=== PATIENT | male | born 1995 | race Caucasian/White ===

== ENCOUNTER 2017-07-09 14:28 | Inpatient (IN) | payer BC, OTHER ==
[~2017-07-09] VITALS: Ht 180.3 cm; Wt 73.6 kg
[2017-07-09 14:54] VITALS: BP 177/70; PULSE 109; RESP 18; TEMP 97.6; O2SAT 99
[2017-07-09 15:28] LABS: AUTOMATED NEUTROPHIL # 18.2 TH/MM3 (1.8-7.7); BASOPHIL # 0.1 TH/MM3 (0-0.2); BASOPHIL % 0.3 % (0.0-2.0); EOSINOPHIL # 0.1 TH/MM3 (0-0.4); EOSINOPHIL % 0.3 % (0.0-4.0); HEMATOCRIT 42.4 % (39.0-51.0); HEMOGLOBIN 14.8 GM/DL (13.0-17.0); LYMPH % 7.2 % (9.0-44.0); LYMPHOCYTE # 1.6 TH/MM3 (1.0-4.8); MEAN CELL VOLUME 82.5 FL (80.0-100.0); MEAN CORPUSCULAR HEMOGLOBIN 28.8 PG (27.0-34.0); MEAN CORPUSCULAR HGB CONC 34.9 % (32.0-36.0); MEAN PLATELET VOLUME 8.4 FL (7.0-11.0); MONO % 7.6 % (0.0-8.0); MONOCYTE # 1.6 TH/MM3 (0-0.9); NEUT % 84.6 % (16.0-70.0); PLATELET COUNT 302 TH/MM3 (150-450); RED BLOOD COUNT 5.14 MIL/MM3 (4.50-5.90); RED CELL DISTRIBUTION WIDTH 13.4 % (11.6-17.2); WHITE BLOOD COUNT 21.5 TH/MM3 (4.0-11.0)
[2017-07-09 15:57] LABS: ALBUMIN 4.8 GM/DL (3.4-5.0); ALT (GPT) 28 U/L (12-78); AST (GOT) 32 U/L (15-37); BICARBONATE 24.7 MEQ/L (21.0-32.0); BLOOD UREA NITROGEN 15 MG/DL (7-18); CHLORIDE 104 MEQ/L (98-107); CREATININE 1.25 MG/DL (0.60-1.30); GLOMERULAR FILTRATION RATE 71 ML/MIN (>89); GLUCOSE,RANDOM 90 MG/DL (74-106); SODIUM (NA) 139 MEQ/L (136-145)
[2017-07-09 15:59] LABS: ALKALINE PHOSPHATASE 79 U/L (45-117); TOTAL BILIRUBIN ADULT 1.3 MG/DL (0.2-1.0); TOTAL PROTEIN 8.2 GM/DL (6.4-8.2)
[2017-07-09 16:09] LABS: ACETAMINOPHEN LESS THAN 2.0 MCG/ML (10.0-30.0)
--- NOTE | 2017-07-09 17:09 | PD ---
HPI Chief Complaint: Psychiatric Symptoms Time Seen by Provider: 16:04 Travel History International Travel<30 days: No Contact w/Intl Traveler<30days: No Traveled to known affect area: No History of Present Illness HPI 22-year-old male that presents to the ED for evaluation of Butler act. Patient was Butler acted by police after properly he was running on the golf course naked. Patient states that he has a history of bipolar disorder and has having pulses in the past, like this. Per patient he only uses marijuana no other drugs. He states that he took off his clothes because he was raining and he was called. He denies any chest pain or shortness of breath. No head injury. No fevers chills or sweats. Per patient about a week ago he had some cold-like symptoms but that has improved. Per patient he is compliant with his lithium. He denies any fevers chills or sweats. Per patient he went to see his psychiatrist last week. Per patient his been battling with homelessness as well as psychiatric illness. He does appear to have some mild myles noted. Denies any suicidal or homicidal ideation at this time. No hallucinations. Unclear length of symptoms which appear to have worsened today. [facility] Past Medical History Medical History: Denies Significant Hx ?: Not Past Surgical History Surgical History: No Previous Surgery Social History Alcohol Use: No Tobacco Use: No Substance Use: No Allergies-Medications (Allergen,Severity, Reaction): Coded Allergies: No Known Allergies (Verified Allergy, Unknown, 07/09/17) Review of Systems Except as stated in HPI: all other systems reviewed are Neg Physical Exam Narrative GENERAL: SKIN: Warm and dry. HEAD: Atraumatic. Normocephalic. EYES: Pupils equal and round. No scleral icterus. No injection or drainage. ENT: No nasal bleeding or discharge. Mucous membranes pink and moist. Tongue is midline. No uvula deviation. NECK: Trachea midline. No JVD. CARDIOVASCULAR: Regular rate and rhythm. No murmurs, S3, S4. RESPIRATORY: No accessory muscle use. Clear to auscultation. Breath sounds equal bilaterally. GASTROINTESTINAL: Abdomen soft, non-tender, nondistended. Hepatic and splenic margins not palpable. MUSCULOSKELETAL: Extremities without clubbing, cyanosis, or edema. No obvious deformities. Full range of motion of the upper and lower extremities bilaterally. 2+ pulses bilaterally. NEUROLOGICAL: Awake and alert. No obvious cranial nerve deficits. Motor grossly within normal limits. Five out of 5 muscle strength in the arms and legs. Normal speech. PSYCHIATRIC: Manic mood and affect; insight and judgment normal. Data Data Last Documented VS Vital Signs Date Time Temp Pulse Resp B/P (MAP) Pulse Ox O2 Delivery O2 Flow Rate FiO2 07/09/17 14:54 97.6 109 18 177/70 (105) 99 Orders Orders Complete Blood Count With Diff (07/09/17 14:42) Comprehensive Metabolic Panel (07/09/17 14:42) Psych Screen (07/09/17 14:42) Drug Screen, Random Urine (07/09/17 14:42) Alcohol (Ethanol) (07/09/17 14:42) Salicylates (Aspirin) (07/09/17 14:42) Tylenol (Acetaminophen) (07/09/17 14:42) Eldora (Li) (07/09/17 16:20) Labs Laboratory Tests Test 07/09/17 15:04 07/09/17 15:35 White Blood Count 21.5 TH/MM3 Red Blood Count 5.14 MIL/MM3 Hemoglobin 14.8 GM/DL Hematocrit 42.4 % Mean Corpuscular Volume 82.5 FL Mean Corpuscular Hemoglobin 28.8 PG Mean Corpuscular Hemoglobin Concent 34.9 % Red Cell Distribution Width 13.4 % Platelet Count 302 TH/MM3 Mean Platelet Volume 8.4 FL Neutrophils (%) (Auto) 84.6 % Lymphocytes (%) (Auto) 7.2 % Monocytes (%) (Auto) 7.6 % Eosinophils (%) (Auto) 0.3 % Basophils (%) (Auto) 0.3 % Neutrophils # (Auto) 18.2 TH/MM3 Lymphocytes # (Auto) 1.6 TH/MM3 Monocytes # (Auto) 1.6 TH/MM3 Eosinophils # (Auto) 0.1 TH/MM3 Basophils # (Auto) 0.1 TH/MM3 CBC Comment DIFF FINAL Differential Comment Blood Urea Nitrogen 15 MG/DL Creatinine 1.25 MG/DL Random Glucose 90 MG/DL Total Protein 8.2 GM/DL Albumin 4.8 GM/DL Calcium Level 9.0 MG/DL Alkaline Phosphatase 79 U/L Aspartate Amino Transf (AST/SGOT) 32 U/L Alanine Aminotransferase (ALT/SGPT) 28 U/L Total Bilirubin 1.3 MG/DL Sodium Level 139 MEQ/L Potassium Level 4.0 MEQ/L Chloride Level 104 MEQ/L Carbon Dioxide Level 24.7 MEQ/L Anion Gap 10 MEQ/L Estimat Glomerular Filtration Rate 71 ML/MIN Salicylates Level LESS THAN 1.7 MG/DL Urine Opiates Screen NEG Acetaminophen Level LESS THAN 2.0 MCG/ML Urine Barbiturates Screen NEG Urine Amphetamines Screen NEG Urine Benzodiazepines Screen NEG Urine Cocaine Screen NEG Urine Cannabinoids Screen POS Ethyl Alcohol Level LESS THAN 3 MG/DL Eldora Level 0.9 MEQ/L MDM Medical Decision Making Medical Screen Exam Complete: Yes Emergency Medical Condition: Yes Medical Record Reviewed: Yes Interpretation(s) CBC & BMP Diagram 07/09/17 15:04 Total Protein 8.2, Albumin 4.8, Calcium Level 9.0, Alkaline Phosphatase 79, Aspartate Amino Transf (AST/SGOT) 32, Alanine Aminotransferase (ALT/SGPT) 28, Total Bilirubin 1.3 H tox positive for marijuana Differential Diagnosis Depression versus suicidal ideation versus anxiety versus adjustment disorder versus mood disorder versus bipolar disorder versus schizophrenia versus paranoid disorder versus psychosis versus substance abuse versus alcohol abuse versus alcohol induced psychosis versus homicidality addition versus cutting versus personality disorder Narrative Course 22-year-old male that presents to the ED for evaluation of psych. Patient was properly examined and was found to have signs and symptoms consistent with appears to be psychiatric illness. Labs were ordered. Labs showed leukocytosis and marijuana. My examination patient has no signs of sepsis or active infection. More apparently no sign of encephalopathy at this time. Patient does have a significant history of bipolar disorder and states that he' s had episodes like this in the past. Case was discussed in my attending Dr. Gibson who agrees the patient can be medically clear. Likely secondary to psychosis/myles. Patient was medically cleared. Okay to be seen by psych. Mental health screening was discussed with the patient. I spoke with the patient's psychiatrist who is in [place] as he apparently tried to contact us to let us know that the patient is to be admitted as patient has a history of psychosis and would like us to keep him as he is concerned that the patient will be discharged too early for him to be stable. Diagnosis Primary Impression: Bipolar disorder Qualified Codes: F31.12 - Bipolar disorder, current episode manic without psychotic features, moderate Oscar Abbasi Jul 09, 2017 17:09
[2017-07-09 19:22] VITALS: BP 143/101; PULSE 94; RESP 18; TEMP 99.9; O2SAT 98
[2017-07-09] MEDS ORDERED: MAGNESIUM HYDROXIDE SUSP 30 ML CUP PO PRN (20:45)
[2017-07-09] MEDS ORDERED: LORazepam 0.5 MG TAB PO PRN (20:45)
[2017-07-09] MEDS ORDERED: LORazepam 2 MG/ML VIAL IM PRN ×2 (20:45)
[2017-07-09] MEDS ORDERED: ALUMINUM/MAGNESIUM/SIMETH 30 ML CUP PO PRN (20:45)
[2017-07-09] MEDS: NICOTINE 21 MG/24 HR PATCH T-DERMAL SCH (20:56)
[2017-07-09] MEDS: REMOVE OLD PATCH T-DERMAL SCH (20:56)
[2017-07-09] MEDS: LITHIUM CARBONATE 300 MG CAP PO SCH (20:57)
[2017-07-09] MEDS: LORazepam 1 MG TAB PO PRN (20:57)
[2017-07-09] MEDS ORDERED: ARIPiprazole 5 MG TAB PO SCH (21:00)
[2017-07-09] MEDS ORDERED: LITH600C PO (21:17)
[2017-07-09 21:50] VITALS: BP 131/79; PULSE 96; RESP 18; TEMP 97.9; O2SAT 99
[2017-07-10 05:28] LABS: BICARBONATE 26.1 MEQ/L (21.0-32.0); BLOOD UREA NITROGEN 14 MG/DL (7-18); CALCIUM 8.4 MG/DL (8.5-10.1); CHLORIDE 102 MEQ/L (98-107); GLOMERULAR FILTRATION RATE 62 ML/MIN (>89); GLUCOSE,RANDOM 94 MG/DL (74-106); SODIUM (NA) 138 MEQ/L (136-145)
[2017-07-10 05:30] LABS: CHOLESTEROL 80 MG/DL (120-200); TRIGLYCERIDES 55 MG/DL (42-150)
[2017-07-10 05:32] LABS: CHOLESTEROL/ HDL RATIO 1.97 RATIO; HDL CHOLESTEROL 40.5 MG/DL (40.0-60.0); LDL CHOLESTEROL 29 MG/DL (0-99)
[2017-07-10 06:07] VITALS: BP 128/74; PULSE 100; RESP 18; TEMP 99.2; O2SAT 99
[2017-07-10] MEDS: NICOTINE 21 MG/24 HR PATCH T-DERMAL SCH (09:00)
[2017-07-10] MEDS: REMOVE OLD PATCH T-DERMAL SCH ×2 (09:00→20:51)
[2017-07-10] MEDS: LITHIUM CARBONATE 300 MG CAP PO SCH ×2 (09:00→20:51)
[2017-07-10 10:56] LABS: HEMOGLOBIN A1C 5.1 % (4.3-6.0)
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
--- NOTE | 2017-07-10 15:58 | PD.CONS ---
HPI Service [facility] Consult Requested By Psychiatry service Reason for Consult Elevated creatinine Primary Care Physician No Primary Care Physician Diagnoses: History of Present Illness Patient is a very pleasant 22-year-old male with known history of bipolar disorder who is admitted here under psychiatry service because of him he was found running around naked in a manic episode. On evaluation chemistry shows a mildly elevated creatinine. Patient denies any fever or chills denies any urinary symptoms hematuria back pain. Patient right now is very pleasant and cooperative. He really is wanting to seek help because of this bipolar disorder it's mostly the depression aspect that affects him most of his work and specifically his sexual performance. Review of Systems Constitutional: DENIES: Fever, Weight loss, Chills, Change in appetite Eyes: DENIES: Blurred vision, Double Vision Ears, nose, mouth, throat: DENIES: Tinnitus, Ear Pain, Epistaxis, Odynophagia Respiratory: DENIES: Cough, Hemoptysis, Sputum production, Shortness of breath Cardiovascular: DENIES: Chest pain, Palpitations, Dyspnea on Exertion, Lower Extremity Edema, Orthopnea Gastrointestinal: DENIES: Black stools, Bloody stools, Difficulty Swallowing, Anorexia Genitourinary: DENIES: Urgency, Hematuria, Penile Discharge Musculoskeletal: DENIES: Joint pain, Stiffness Integumentary: DENIES: Pruritus Hematologic/lymphatic: DENIES: Bruising Immunologic/allergic: DENIES: Urticaria Neurologic: DENIES: Headache, Speech Problems, Tremor Psychiatric: COMPLAINS OF: Mood changes, Depression, DENIES: Suicidal Ideation , Homicidal Ideation Past Family Social History Allergies: Coded Allergies: No Known Allergies (Verified Allergy, Unknown, 07/09/17) Past Medical History Bipolar disorder Past Surgical History [place] tooth extraction Reported Medications Currently Zyprexa 5 mg at bedtime lithium 900 mg twice a day when necessary lorazepam Nicotinic patch Active Ordered Medications See EMR Family History Nonsmoker Admits to occasional smoking weed Denies IV drug use Social History Nonsmoker Admits to the smoking bleed Denies IV drug use Physical Exam Vital Signs Vital Signs Date Time Temp Pulse Resp B/P (MAP) Pulse Ox O2 Delivery O2 Flow Rate FiO2 07/10/17 06:07 99.2 100 18 128/74 (92) 99 07/09/17 21:50 97.9 96 18 131/79 (96) 99 07/09/17 21:27 07/09/17 19:22 99.9 94 18 143/101 (115) 98 Room Air Physical Exam GENERAL: This is a well-nourished, well-developed patient, in no apparent distress. SKIN: No rashes, ecchymoses or lesions. Cool and dry. HEAD: Atraumatic. Normocephalic. No temporal or scalp tenderness. EYES: Pupils equal round and reactive. Extraocular motions intact. No scleral icterus. No injection or drainage. ENT: Nose without bleeding, purulent drainage or septal hematoma.. Airway patent. Throat no exudates NECK: Trachea midline. No JVD or lymphadenopathy. Supple, nontender, no meningeal signs. No nuchal rigidity CARDIOVASCULAR: Regular rate and rhythm without murmurs, gallops, or rubs. RESPIRATORY: Clear to auscultation. Breath sounds equal bilaterally. No wheezes , rales, or rhonchi. GASTROINTESTINAL: Abdomen soft, non-tender, nondistended. No hepato-splenomegaly , or palpable masses. No guarding. MUSCULOSKELETAL: Extremities without clubbing, cyanosis, or edema. No joint tenderness, effusion, or edema noted. No calf tenderness. Negative Homans sign bilaterally. No CVA tenderness NEUROLOGICAL: Awake and alert. Cranial nerves II through XII intact. Motor and sensory grossly within normal limits. Five out of 5 muscle strength in all muscle groups. Normal speech. Laboratory Laboratory Tests Test 07/10/17 04:54 Blood Urea Nitrogen 14 Creatinine 1.40 Random Glucose 94 Calcium Level 8.4 Sodium Level 138 Potassium Level 3.8 Chloride Level 102 Carbon Dioxide Level 26.1 Anion Gap 10 Estimat Glomerular Filtration Rate 62 Hemoglobin A1c 5.1 Triglycerides Level 55 Cholesterol Level 80 LDL Cholesterol 29 HDL Cholesterol 40.5 Cholesterol/HDL Ratio 1.97 [place] Level 0.8 Result Diagram: 07/09/17 1504 07/10/17 0454 Assessment and Plan Assessment and Plan 22-year-old male admitted for Bipolar disorder management per psychiatry. Leukocytosis- ? reactive monitor for signs if infection will get a UA Mildly Elevated creatinine patient with no known history of kidney disease. No nausea or vomiting. no urinary symptoms Patient goes to stages where he will be depressed and would not eat. We'll at least get a UA. Encourage by mouth fluids. Get double portions for nutrition.- asking for more food with a good appetite Recheck BMP in a.m. Marijuana use. Patient counseled Patient up and ambulating Thank you for this consult we'll follow patient in-house with you Andi Hester MD Jul 10, 2017 15:58
[2017-07-10 17:55] VITALS: BP 145/91; PULSE 111; RESP 18; TEMP 99.7; O2SAT 100
[2017-07-10] MEDS ORDERED: OLANZapine 5 MG TAB PO SCH (21:00)
[2017-07-11 05:47] VITALS: BP 175/89; PULSE 76; RESP 18; TEMP 98.1; O2SAT 10
[2017-07-11 07:42] VITALS: BP 154/89; PULSE 105; RESP 18; TEMP 99.4; O2SAT 97
[2017-07-11] MEDS: LITHIUM CARBONATE 300 MG CAP PO SCH ×2 (08:30→20:26)
[2017-07-11] MEDS: NICOTINE 21 MG/24 HR PATCH T-DERMAL SCH (08:31)
[2017-07-11] MEDS ORDERED: OLANZapine IM 10 MG VIAL IM ONE (10:15)
--- NOTE | 2017-07-11 11:55 | PD.PSY.CON ---
Provisional Diagnosis Admission Date Jul 09, 2017 at 20:37 [place]. Bipolar disorder History of Present Illness Service Psychiatry Consult Requested By Dr. Raygoza Reason for Consult bipolar disorder Primary Care Physician No Primary Care Physician HPI Patient's the 22-year-old man, single, domiciled with girlfriend, unemployed, with a past psychiatric history of bipolar disorder 2 previous psychiatric hospitalizations, no previous suicide attempt or self-injurious behavior, with a substance use history significant for marijuana use, who was brought in the [place] act as a being found running naked in [place] course, disorganized in the context of history of noncompliance with concerns of patient 's ability care of self due to current symptomatology which patient was transferred to the inpatient psychiatry unit for further evaluation and management. Patient was found in the day room was able to cooperate with interview. Patient states that he had recently been having "trust issues" with others state is the reason why he had left patient states that he feels his girlfriend was starting to "turning on me" and having been influenced by his mother. Patient noted to be disorganized during interview with flight of ideas and loosening associations along with noted pressured speech. Patient states that recently he had been playing video games along with using marijuana daily in mentioning having had increase interested study computers and having wanting to be a computer forensic examiner along with reading the online Bible. Patient mentions other activities are decreased goal-directed activities with decreased sleep, having discontinued risperidone although reports continuing lithium. Patient states that he has "brain prior over weaker mines" as well as noticing that his mood has been "all over the place" but was not is a specified period patient at this time reports feeling well denies any perceptual disturbances at this time continues some grandiose and bizarre delusions. Family history: Patient reports being adopted. The patient is a 22-year-old man, single, domiciled with his girlfriend, unemployed, with psychiatric history of bipolar disorder, previous psychiatric hospitalizations, no previous suicidal attempts, cannabis use disorder, he is on lithium unknown doses, no medical history, who was brought to the hospital on the [place] act because he was found running naked in a golf course. The patient was seen today for an evaluation and second opinion. He was found talking with other peers, calm, cooperative. However, patient is very disorganized, tangential, with ideas of reference. He says that people has been trying to control his mind and his behavior, he says that he is there for his family most be behind all this "by controlling my mind". He denies suicidal and homicidal ideation, he denies visual and auditory hallucinations. Past Family Social History Coded Allergies: No Known Allergies (Verified Allergy, Unknown, 07/09/17) Reported Medications [place] Carbonate ([place] Carbonate) 600 Mg Cap, 600 MG PO TID, CAP 0 Refills 07/09/17 Current Medications Medications (Trade) Dose Ordered Sig/Seferino Route Start Time Stop Time Status Last Admin (Ativan) 1 mg Q6H PRN PO 07/09/17 20:45 07/09/17 20:57 (Ativan Inj) 1 mg Q6H PRN IM 07/09/17 20:45 (Tylenol) 650 mg Q4H PRN PO 07/09/17 20:45 (Milk Of Magnesia Liq) 30 ml DAILY PRN PO 07/09/17 20:45 (Mag-Al Plus Susp Liq) 30 ml Q6H PRN PO 07/09/17 20:45 (Habitrol 21 Mg Patch.24 Hr) 1 patch DAILY T-DERMAL 07/09/17 20:45 07/11/17 08:31 ([place] Carbonate) 300 mg Q12HR PO 07/09/17 21:00 07/11/17 08:30 Miscellaneous Information 1 DAILY T-DERMAL 07/09/17 20:47 (ZyPREXA) 5 mg BID PO 07/11/17 21:00 (KlonoPIN) 0.5 mg Q12HR PO 07/11/17 21:00 Patient's Strengths (min. 2) Verbally and communicative Physical Exam Vital Signs Vital Signs Date Time Temp Pulse Resp B/P (MAP) Pulse Ox O2 Delivery O2 Flow Rate FiO2 07/11/17 07:42 99.4 105 18 154/89 (110) 97 07/09/17 19:22 Room Air Mental Status Examination Appearance: Appropriate Consciousness: Alert Orientation: Person, Place, Date/Time Motor Activity: Normal gait Speech: Pressured, Rapid Language: Adequate Fund of Knowledge: Inadequate Attention and Concentration: Easily Distracted Memory: Unremarkable Mood: Good Affect: Labile Thought Process & Associations: Loose associations, Disorganized (at times), Tangential Thought Content: Bizarre thinking, Delusional, Other (flight of ideas or ideas) Hallucination Type: None Delusion Type: Bizarre Suicidal Ideation: No Suicidal Plan: No Suicidal Intention: No Homicidal Ideation: No Homicidal Plan: No Homicidal Intention: No Insight: Poor Judgment: Poor Assessment & Plan Problem List: (1) Bipolar disorder ICD Codes: F31.9 - Bipolar disorder, unspecified Status: Acute Assessment & Plan: I have seen and examined this patient, review chart, I agree and concur with Dr. Raygoza assessment and plan. Assessment & Plan Estimated LOS: days Problem Qualifiers (1) Bipolar disorder: Qualified Codes: F31.12 - Bipolar disorder, current episode manic without psychotic features, moderate John Delgado MD Jul 11, 2017 11:55
--- NOTE | 2017-07-11 14:17 | HHI.PR ---
Subjective Remarks no complains of pain, headaches, no urinary symptoms patient outside playing basketball good po intake appear a little hyper today Objective Vitals Vital Signs Date Time Temp Pulse Resp B/P (MAP) Pulse Ox O2 Delivery O2 Flow Rate FiO2 07/11/17 07:42 99.4 105 18 154/89 (110) 97 07/11/17 05:47 98.1 76 18 175/89 (117) 10 07/10/17 17:55 99.7 111 18 145/91 (109) 100 Result Diagram: 07/09/17 1504 07/10/17 0454 Objective Remarks awake and alert, oriented x 3 lungs clear regular rhythm abdomen soft,extremities no edema no open wounds A/P Assessment and Plan 22-year-old male admitted for Bipolar disorder management per psychiatry. Leukocytosis- ? reactive monitor temperature and signs of infection repeat CBC now MAVERICK - Mildly Elevated creatinine patient with no known history of kidney disease. No nausea or vomiting. no urinary symptoms Patient goes to stages where he will be depressed and would not eat.- now with goo po intake Encourage by mouth fluids. Get double portions for nutrition.- asking for more food with a good appetite To get a CK. Rule out possible rhabdo - per report patient was running around naked in golf course Recheck BMP now Marijuana use. Patient counseled Patient up and ambulating Thank you for this consult we'll follow patient in-house with you Andi Hester MD Jul 11, 2017 14:16
[2017-07-11 16:45] LABS: HEMATOCRIT 41.3 % (39.0-51.0); HEMOGLOBIN 14.1 GM/DL (13.0-17.0); MEAN CELL VOLUME 82.6 FL (80.0-100.0); MEAN CORPUSCULAR HEMOGLOBIN 28.3 PG (27.0-34.0); MEAN CORPUSCULAR HGB CONC 34.2 % (32.0-36.0); MEAN PLATELET VOLUME 8.3 FL (7.0-11.0); PLATELET COUNT 299 TH/MM3 (150-450); RED BLOOD COUNT 5.01 MIL/MM3 (4.50-5.90); RED CELL DISTRIBUTION WIDTH 13.4 % (11.6-17.2); WHITE BLOOD COUNT 16.8 TH/MM3 (4.0-11.0)
[2017-07-11 17:12] VITALS: BP 141/83; PULSE 88; RESP 19; TEMP 98.6; O2SAT 99
--- NOTE | 2017-07-11 17:14 | HHI.PYPN ---
Subjective Remarks Patient seen for follow-up, chart reviewed. Discussion with nursing staff reported that the patient did not sleep last night, paranoid and with threatening behavior this morning. Patient was noted to be in the nursing station inappropriate with staff, noted to yank phone away from nurse and pacing. Patient was given olanzapine 10mg IM x 1 for agitation. Patient was seen later and found calm and cooperative with interview. Patient stated he had slept well while nursing report stipulated the contrary. He mentions that he slept about 4 hours and not feeling tired. Psychoeducation regarding good sleep was reviewed. He is noted to have some thought blocking and states that his thoughts are "pressured". He also mentions that his parents had visited him last evening and felt "disappointed" and states blaming them on his hospitalizations. Review of Systems Except as stated in HPI: all other systems reviewed are Neg Mental Status Examination Appearance: Appropriate Consciousness: Alert Orientation: Person, Place, Date/Time Motor Activity: Normal gait Speech: Pressured, Rapid Language: Adequate Fund of Knowledge: Inadequate Attention and Concentration: Easily Distracted Memory: Unremarkable Mood: Good Affect: Labile Thought Process & Associations: Loose associations, Disorganized (at times), Tangential Thought Content: Bizarre thinking, Delusional, Other (flight of ideas or ideas) Hallucination Type: None Delusion Type: Bizarre Suicidal Ideation: No Suicidal Plan: No Suicidal Intention: No Homicidal Ideation: No Homicidal Plan: No Homicidal Intention: No Insight: Poor Judgment: Poor Results Labs labs reviewed Test 07/11/17 15:45 White Blood Count 16.8 TH/MM3 Red Blood Count 5.01 MIL/MM3 Hemoglobin 14.1 GM/DL Hematocrit 41.3 % Mean Corpuscular Volume 82.6 FL Mean Corpuscular Hemoglobin 28.3 PG Mean Corpuscular Hemoglobin Concent 34.2 % Red Cell Distribution Width 13.4 % Platelet Count 299 TH/MM3 Mean Platelet Volume 8.3 FL Vitals/IOs Vital Signs Date Time Temp Pulse Resp B/P (MAP) Pulse Ox O2 Delivery O2 Flow Rate FiO2 07/11/17 17:12 98.6 88 19 141/83 (102) 99 07/09/17 19:22 Room Air Assessment & Plan Problem List: (1) Bipolar disorder ICD Codes: F31.9 - Bipolar disorder, unspecified Status: Acute Assessment & Plan Patient continues to be labile, agitated at times, poor impulse control, continues to be disorganized and internally preoccupied. Patient received olanzapine 10mg IM x 1 for agitation. Will increase olanzapine 5mg PO BID with upward titration as needed for myles and psychosis. Start clonazepam 0.5mg PO BID. [place] level ordered for tomorrow morning. Continue to monitor mood and behavior. Discharge planning in progress. Justification for Cont. Inpt. At risk for further decompensation if at lower level of care. Discharge Planning To be discharged back to parents or girlfriends residence. Problem Qualifiers (1) Bipolar disorder: Qualified Codes: F31.12 - Bipolar disorder, current episode manic without psychotic features, moderate Hua Raygoza MD Jul 11, 2017 17:14
[2017-07-11 17:27] LABS: ALBUMIN 4.4 GM/DL (3.4-5.0); ALT (GPT) 68 U/L (12-78); AST (GOT) 173 U/L (15-37); BICARBONATE 26.2 MEQ/L (21.0-32.0); BLOOD UREA NITROGEN 11 MG/DL (7-18); CALCIUM 8.7 MG/DL (8.5-10.1); CHLORIDE 105 MEQ/L (98-107); CREATININE 0.96 MG/DL (0.60-1.30); GLOMERULAR FILTRATION RATE 96 ML/MIN (>89); GLUCOSE,RANDOM 84 MG/DL (74-106); SODIUM (NA) 139 MEQ/L (136-145)
[2017-07-11 18:03] LABS: ALKALINE PHOSPHATASE 76 U/L (45-117); TOTAL BILIRUBIN ADULT 0.9 MG/DL (0.2-1.0); TOTAL PROTEIN 7.8 GM/DL (6.4-8.2)
[2017-07-11] MEDS: clonazePAM 0.5 MG TAB PO SCH (20:26)
[2017-07-11] MEDS: OLANZapine 5 MG TAB PO SCH (20:26)
[2017-07-12 06:22] VITALS: BP 143/93; PULSE 84; RESP 18; TEMP 98.3; O2SAT 98
[2017-07-12] MEDS: LITHIUM CARBONATE 300 MG CAP PO SCH ×2 (07:57→20:20)
[2017-07-12] MEDS: OLANZapine 5 MG TAB PO SCH ×2 (07:57→20:19)
[2017-07-12] MEDS: NICOTINE 21 MG/24 HR PATCH T-DERMAL SCH (07:57)
[2017-07-12] MEDS: clonazePAM 0.5 MG TAB PO SCH ×2 (07:57→20:19)
[2017-07-12] MEDS: REMOVE OLD PATCH T-DERMAL SCH (09:00)
[2017-07-12 10:17] LABS: AUTOMATED NEUTROPHIL # 7.5 TH/MM3 (1.8-7.7); BASOPHIL % 0.4 % (0.0-2.0); EOSINOPHIL # 0.3 TH/MM3 (0-0.4); EOSINOPHIL % 3.1 % (0.0-4.0); HEMATOCRIT 42.6 % (39.0-51.0); HEMOGLOBIN 14.5 GM/DL (13.0-17.0); LYMPH % 18.8 % (9.0-44.0); MEAN CELL VOLUME 83.3 FL (80.0-100.0); MEAN CORPUSCULAR HEMOGLOBIN 28.4 PG (27.0-34.0); MEAN CORPUSCULAR HGB CONC 34.1 % (32.0-36.0); MEAN PLATELET VOLUME 8.4 FL (7.0-11.0); MONO % 8.5 % (0.0-8.0); MONOCYTE # 0.9 TH/MM3 (0-0.9); NEUT % 69.2 % (16.0-70.0); PLATELET COUNT 275 TH/MM3 (150-450); RED BLOOD COUNT 5.11 MIL/MM3 (4.50-5.90); RED CELL DISTRIBUTION WIDTH 13.2 % (11.6-17.2); WHITE BLOOD COUNT 10.9 TH/MM3 (4.0-11.0)
--- NOTE | 2017-07-12 13:11 | HHI.PYPN ---
Subjective Remarks Pt seen and discussed with staff. He c/o of hearing demons and engages in bizarre behavior (jumping on beds, etc). Yesterday, he was agitated and required ETO for safety. Today he has been more cooperative and compliant with medications He remains delusional and loose in thought process. . Mental Status Examination Appearance: Appropriate Consciousness: Alert Orientation: Person, Place, Date/Time Motor Activity: Normal gait Speech: Rapid Language: Adequate Fund of Knowledge: Inadequate Attention and Concentration: Easily Distracted Memory: Unremarkable Mood: Other (calm) Affect: Labile Thought Process & Associations: Loose associations, Disorganized (at times), Tangential Thought Content: Bizarre thinking, Delusional, Other (flight of ideas or ideas) Hallucination Type: None Delusion Type: Bizarre Suicidal Ideation: No Suicidal Plan: No Suicidal Intention: No Homicidal Ideation: No Homicidal Plan: No Homicidal Intention: No Insight: Poor Judgment: Poor Results Labs Test 07/11/17 15:45 07/12/17 08:40 White Blood Count 16.8 TH/MM3 10.9 TH/MM3 Red Blood Count 5.01 MIL/MM3 5.11 MIL/MM3 Hemoglobin 14.1 GM/DL 14.5 GM/DL Hematocrit 41.3 % 42.6 % Mean Corpuscular Volume 82.6 FL 83.3 FL Mean Corpuscular Hemoglobin 28.3 PG 28.4 PG Mean Corpuscular Hemoglobin Concent 34.2 % 34.1 % Red Cell Distribution Width 13.4 % 13.2 % Platelet Count 299 TH/MM3 275 TH/MM3 Mean Platelet Volume 8.3 FL 8.4 FL Blood Urea Nitrogen 11 MG/DL Creatinine 0.96 MG/DL Random Glucose 84 MG/DL Total Protein 7.8 GM/DL Albumin 4.4 GM/DL Calcium Level 8.7 MG/DL Alkaline Phosphatase 76 U/L Aspartate Amino Transf (AST/SGOT) 173 U/L Alanine Aminotransferase (ALT/SGPT) 68 U/L Total Bilirubin 0.9 MG/DL Sodium Level 139 MEQ/L Potassium Level 3.7 MEQ/L Chloride Level 105 MEQ/L Carbon Dioxide Level 26.2 MEQ/L Anion Gap 8 MEQ/L Estimat Glomerular Filtration Rate 96 ML/MIN Total Creatine Kinase 69426 U/L Creatine Kinase MB 3.7 NG/ML Neutrophils (%) (Auto) 69.2 % Lymphocytes (%) (Auto) 18.8 % Monocytes (%) (Auto) 8.5 % Eosinophils (%) (Auto) 3.1 % Basophils (%) (Auto) 0.4 % Neutrophils # (Auto) 7.5 TH/MM3 Lymphocytes # (Auto) 2.0 TH/MM3 Monocytes # (Auto) 0.9 TH/MM3 Eosinophils # (Auto) 0.3 TH/MM3 Basophils # (Auto) 0.0 TH/MM3 CBC Comment DIFF FINAL Differential Comment [place] Level 0.6 MEQ/L Vitals/IOs Vital Signs Date Time Temp Pulse Resp B/P (MAP) Pulse Ox O2 Delivery O2 Flow Rate FiO2 07/12/17 06:22 98.3 84 18 143/93 (110) 98 07/09/17 19:22 Room Air Assessment & Plan Problem List: (1) Bipolar disorder ICD Codes: F31.9 - Bipolar disorder, unspecified Status: Acute Assessment & Plan Continue current tx plan. Estimated LOS: days Justification for Cont. Inpt. impairments in reality testing Problem Qualifiers (1) Bipolar disorder: Qualified Codes: F31.12 - Bipolar disorder, current episode manic without psychotic features, moderate Zulema Pop MD Jul 12, 2017 13:11
--- NOTE | 2017-07-12 15:51 | HHI.PR ---
Subjective Remarks awake and alert cooperative feels better- not pacing around- "calmer" denies any urinary symptoms- states urine lt colored no muscle aches or pains Objective Vitals Vital Signs Date Time Temp Pulse Resp B/P (MAP) Pulse Ox O2 Delivery O2 Flow Rate FiO2 07/12/17 06:22 98.3 84 18 143/93 (110) 98 07/11/17 17:12 98.6 88 19 141/83 (102) 99 Result Diagram: 07/12/17 0840 07/11/17 1545 Objective Remarks awake and alert, oriented x 3 lungs clear regular rhythm abdomen soft,extremities no edema no calf swelling no muscle tenderness A/P Assessment and Plan 22-year-old male admitted for Bipolar disorder management per psychiatry. Leukocytosis- - Reactive- WBC improved MAVERICK- improved patient with no known history of kidney disease. No nausea or vomiting. Patient goes to stages where he will be depressed and would not eat.- now with good po intake Rhabdomyolysis- was running around naked in golf course.. Increased CK, AST Encourage by mouth fluids. Getting double portions for nutrition FF CK . voiding well Marijuana use. Patient counseled Patient up and ambulating Andi Hester MD Jul 12, 2017 15:51
[2017-07-12 17:08] VITALS: BP_SYST 109; BP_SYST 152; BP_DIAS 57; BP_DIAS 87; PULSE 85; PULSE 90; RESP 16; RESP 18; TEMP 100; TEMP 96.7; O2SAT 98
[2017-07-12] MEDS: ACETAMINOPHEN 325 MG TAB PO PRN (23:47)
[2017-07-12] MEDS: LORazepam 1 MG TAB PO PRN (23:48)
[2017-07-13] MEDS: LORazepam 1 MG TAB PO PRN (06:22)
[2017-07-13] MEDS: LITHIUM CARBONATE 300 MG CAP PO SCH ×2 (08:05→20:21)
[2017-07-13] MEDS: OLANZapine 5 MG TAB PO SCH ×2 (08:05→20:21)
[2017-07-13] MEDS: clonazePAM 0.5 MG TAB PO SCH ×2 (08:05→20:21)
[2017-07-13] MEDS: NICOTINE 21 MG/24 HR PATCH T-DERMAL SCH (09:00)
[2017-07-13] MEDS: REMOVE OLD PATCH T-DERMAL SCH (09:00)
[2017-07-13 10:09] VITALS: TEMP 99.4
[2017-07-13 10:50] LABS: AST (GOT) 87 U/L (15-37); BICARBONATE 25.5 MEQ/L (21.0-32.0); BLOOD UREA NITROGEN 8 MG/DL (7-18); CALCIUM 8.7 MG/DL (8.5-10.1); CHLORIDE 105 MEQ/L (98-107); CREATININE 1.04 MG/DL (0.60-1.30); GLOMERULAR FILTRATION RATE 88 ML/MIN (>89); GLUCOSE,RANDOM 125 MG/DL (74-106); SODIUM (NA) 140 MEQ/L (136-145)
[2017-07-13 10:51] LABS: ALT (GPT) 64 U/L (12-78)
[2017-07-13 10:53] LABS: ALKALINE PHOSPHATASE 64 U/L (45-117); TOTAL BILIRUBIN ADULT 0.7 MG/DL (0.2-1.0); TOTAL PROTEIN 7.2 GM/DL (6.4-8.2)
--- NOTE | 2017-07-13 11:43 | HHI.PYPN ---
Subjective Remarks Pt seen and discussed with staff. He slept poorly and was cursing at staff. He continues to express IOR and other bizarre ideations. He reports that demons are in his head and everything that he touches turns to success. He has been oppositional on the unit and has required redirection due to antagonizing, intrusive behavior towards peers. No SI/HI. Mental Status Examination Appearance: Appropriate Consciousness: Alert Orientation: Person, Place, Date/Time Motor Activity: Normal gait Speech: Rapid Language: Adequate Fund of Knowledge: Inadequate Attention and Concentration: Easily Distracted Memory: Unremarkable Mood: Other (calm) Affect: Labile Thought Process & Associations: Loose associations, Tangential Thought Content: Bizarre thinking, Delusional, Other (flight of ideas or ideas) Hallucination Type: Auditory Delusion Type: Bizarre Suicidal Ideation: No Suicidal Plan: No Suicidal Intention: No Homicidal Ideation: No Homicidal Plan: No Homicidal Intention: No Insight: Poor Judgment: Poor Results Labs Test 07/13/17 09:30 Blood Urea Nitrogen 8 MG/DL Creatinine 1.04 MG/DL Random Glucose 125 MG/DL Total Protein 7.2 GM/DL Albumin 4.0 GM/DL Calcium Level 8.7 MG/DL Alkaline Phosphatase 64 U/L Aspartate Amino Transf (AST/SGOT) 87 U/L Alanine Aminotransferase (ALT/SGPT) 64 U/L Total Bilirubin 0.7 MG/DL Sodium Level 140 MEQ/L Potassium Level 3.7 MEQ/L Chloride Level 105 MEQ/L Carbon Dioxide Level 25.5 MEQ/L Anion Gap 10 MEQ/L Estimat Glomerular Filtration Rate 88 ML/MIN Total Creatine Kinase 3468 U/L Creatine Kinase MB 2.4 NG/ML Creatine Kinase MB % 0.1 % Vitals/IOs Vital Signs Date Time Temp Pulse Resp B/P (MAP) Pulse Ox O2 Delivery O2 Flow Rate FiO2 07/13/17 10:09 99.4 07/12/17 17:08 85 16 152/87 (108) 98 07/09/17 19:22 Room Air Assessment & Plan Problem List: (1) Bipolar disorder ICD Codes: F31.9 - Bipolar disorder, unspecified Status: Acute Assessment & Plan Continue current tx plan. Estimated LOS: days Justification for Cont. Inpt. impairments in reality testing Problem Qualifiers (1) Bipolar disorder: Qualified Codes: F31.12 - Bipolar disorder, current episode manic without psychotic features, moderate Zulema Pop MD Jul 13, 2017 11:43
--- NOTE | 2017-07-13 15:22 | HHI.PR ---
Subjective Remarks patient appears calmer denies any pain no muscle aches Objective Vitals Vital Signs Date Time Temp Pulse Resp B/P (MAP) Pulse Ox O2 Delivery O2 Flow Rate FiO2 07/13/17 10:09 99.4 07/12/17 17:08 100.0 85 16 152/87 (108) 98 Result Diagram: 07/12/17 0840 07/13/17 0930 Objective Remarks awake and alert, oriented x 3 lungs clear regular rhythm abdomen soft,extremities no edema no calf swelling no muscle tenderness ambulating well A/P Assessment and Plan 22-year-old male admitted for Bipolar disorder management per psychiatry. Leukocytosis- - Reactive- WBC improved MAVERICK- resolved patient with no known history of kidney disease. No nausea or vomiting. Patient goes to stages where he will be depressed and would not eat.- now with good po intake Rhabdomyolysis- was running around naked in golf course.. Increased CK, AST Encourage by mouth fluids. Getting double portions for nutrition CK trending down nicely recheck nicole Marijuana use. Patient counseled Patient up and ambulating Andi Hester MD Jul 13, 2017 15:22
[2017-07-13 17:45] VITALS: BP 161/81; PULSE 100; RESP 20; TEMP 98.1; O2SAT 100
[2017-07-14] MEDS: LORazepam 1 MG TAB PO PRN ×3 (03:34→17:15)
[2017-07-14] MEDS: ACETAMINOPHEN 325 MG TAB PO PRN ×3 (03:34→04:57)
[2017-07-14 05:37] VITALS: BP 142/65; PULSE 100
[2017-07-14 06:10] VITALS: BP 142/85; PULSE 60; RESP 17; TEMP 97.1; O2SAT 100
[2017-07-14] MEDS: clonazePAM 0.5 MG TAB PO SCH ×2 (09:12→21:03)
[2017-07-14] MEDS: LITHIUM CARBONATE 300 MG CAP PO SCH ×2 (09:13→21:03)
[2017-07-14] MEDS: REMOVE OLD PATCH T-DERMAL SCH (09:13)
[2017-07-14] MEDS: OLANZapine 5 MG TAB PO SCH (09:13)
[2017-07-14] MEDS: NICOTINE 21 MG/24 HR PATCH T-DERMAL SCH (09:14)
--- NOTE | 2017-07-14 16:44 | HHI.PYPN ---
Subjective Remarks Patient seen for follow-up, chart reviewed. Discussion with nursing staff reported the patient is alert and oriented 3, has been pleasant with staff, denied any auditory or visual hallucinations but also noted to not been sleeping at night. Patient was found in his room, cooperative interview. Patient states that he is sleeping well despite contradictory reports from nursing. Patient stated that his mood has been "content". 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 He states that he does not want to involve himself with his parents as he states having stopped answering the phone with the call. Patient states that he would like to do this on his own but denied unclear reasons why he did not want them involved. Patient reports tolerating medications well denying any side effects at this time. Review of Systems Except as stated in HPI: all other systems reviewed are Neg Mental Status Examination Appearance: Appropriate Consciousness: Alert Orientation: Person, Place, Date/Time Motor Activity: Normal gait Speech: Rapid Language: Adequate Fund of Knowledge: Inadequate Attention and Concentration: Easily Distracted Memory: Unremarkable Mood: Other (calm) Affect: Appropriate Thought Process & Associations: Tangential Thought Content: Delusional Hallucination Type: Auditory (denies) Delusion Type: Bizarre, Other (grandiose) Suicidal Ideation: No Suicidal Plan: No Suicidal Intention: No Homicidal Ideation: No Homicidal Plan: No Homicidal Intention: No Insight: Poor Judgment: Poor Results Labs Labs reviewed Test 07/14/17 10:30 Total Creatine Kinase 1815 U/L Creatine Kinase MB 2.2 NG/ML Creatine Kinase MB % 0.1 % Vitals/IOs Vital Signs Date Time Temp Pulse Resp B/P (MAP) Pulse Ox O2 Delivery O2 Flow Rate FiO2 07/14/17 06:10 97.1 60 17 142/85 (104) 100 Assessment & Plan Problem List: (1) Bipolar disorder ICD Codes: F31.9 - Bipolar disorder, unspecified Status: Acute Assessment & Plan Patient at this time continues to be noted to somewhat grandiose with labile mood reviewed and noted to be somewhat irritable with staff at times. Patient has not been sleeping despite patient reported the opposite. We will increase olanzapine to 10 mg by mouth twice a day, continue rest of medications. We'll attempt to involve family again due to his care this will improve his probability of preventing future decompensation. Discharge planning in progress Justification for Cont. Inpt. At risk for further decompensation if at lower level of care Discharge Planning To be determined Problem Qualifiers (1) Bipolar disorder: Qualified Codes: F31.12 - Bipolar disorder, current episode manic without psychotic features, moderate Hua Raygoza MD Jul 14, 2017 16:44
--- NOTE | 2017-07-14 17:04 | HHI.PR ---
Subjective Remarks anxious to go home no complains no muscle aches voidjng clear urine Objective Vitals Vital Signs Date Time Temp Pulse Resp B/P (MAP) Pulse Ox O2 Delivery O2 Flow Rate FiO2 07/14/17 06:10 97.1 60 17 142/85 (104) 100 07/14/17 05:37 100 142/65 (90) 07/13/17 17:45 98.1 100 20 161/81 (107) 100 Result Diagram: 07/12/17 0840 07/13/17 0930 Objective Remarks awake and alert, oriented x 3 lungs clear regular rhythm abdomen soft,extremities no edema no calf swelling no muscle tenderness ambulating well A/P Assessment and Plan 22-year-old male admitted for Bipolar disorder management per psychiatry. Leukocytosis- - Reactive- WBC improved MAVERICK- resolved patient with no known history of kidney disease. No nausea or vomiting. Patient goes to stages where he will be depressed and would not eat.- now with good po intake Rhabdomyolysis- was running around naked in golf course.. Increased CK, AST Encourage by mouth fluids. Getting double portions for nutrition CK trending down nicely Marijuana use. Patient counseled Patient up and ambulating OK to DC home if cleared with Psyhciatry [facility] signs off encoruage po fluids Andi Hester MD Jul 14, 2017 17:04
[2017-07-14 18:00] VITALS: BP 154/90; PULSE 109; RESP 17; TEMP 98.9; O2SAT 100
[2017-07-14] MEDS ORDERED: traZODone HCL 50 MG TAB PO PRN (21:00)
[2017-07-14] MEDS ORDERED: OLANZapine 10 MG TAB PO SCH (21:00)
[2017-07-14] MEDS: OLANZapine 10 MG TAB PO SCH (21:03)
[2017-07-15] MEDS: LORazepam 1 MG TAB PO PRN ×2 (04:32→09:57)
[2017-07-15 05:23] VITALS: BP 174/99; PULSE 79; RESP 18; TEMP 97.6; O2SAT 100
[2017-07-15] MEDS ORDERED: OLANZapine 5 MG TAB PO SCH (09:00)
[2017-07-15] MEDS: LITHIUM CARBONATE 300 MG CAP PO SCH ×2 (09:56→20:13)
[2017-07-15] MEDS: OLANZapine 10 MG TAB PO SCH (09:57)
[2017-07-15] MEDS: NICOTINE 21 MG/24 HR PATCH T-DERMAL SCH (09:57)
[2017-07-15] MEDS: clonazePAM 0.5 MG TAB PO SCH ×2 (09:57→20:13)
[2017-07-15] MEDS: REMOVE OLD PATCH T-DERMAL SCH (10:01)
--- NOTE | 2017-07-15 11:13 | HHI.PYPN ---
Subjective Remarks Patient seen for follow-up, chart review. Discussion of several reported the patient noted to be somewhat irritable, demanding grandiose on the unit at times instigating staff and other patients but has not had any physical aggression or periods of agitation requiring ETO's. Patient is found wandering on the unit, cooperative interview today. Patient states that he is feeling "good" reports having slept well, perseverative today on discharge plan and noted to be somewhat demanding. Patient agrees to continue current treatment as well as blood work and pending medical clearance. Patient states that his parents are coming to visit his S evening states that when he is discharged she is planning to go home with them. Patient is noted to have some grandiosity entitlement with his interactions with staff. Review of Systems Except as stated in HPI: all other systems reviewed are Neg Mental Status Examination Appearance: Appropriate Consciousness: Alert Orientation: Person, Place, Date/Time Motor Activity: Normal gait Speech: Rapid Language: Adequate Fund of Knowledge: Inadequate Attention and Concentration: Easily Distracted Memory: Unremarkable Mood: Other (calm) Affect: Appropriate Thought Process & Associations: Goal directed, Linear Thought Content: Delusional Hallucination Type: None Delusion Type: Bizarre, Other (grandiose) Suicidal Ideation: No Suicidal Plan: No Suicidal Intention: No Homicidal Ideation: No Homicidal Plan: No Homicidal Intention: No Insight: Fair Judgment: Impulsive Results Vitals/IOs Vital Signs Date Time Temp Pulse Resp B/P (MAP) Pulse Ox O2 Delivery O2 Flow Rate FiO2 07/15/17 05:23 97.6 79 18 174/99 (124) 100 Assessment & Plan Problem List: (1) Bipolar disorder ICD Codes: F31.9 - Bipolar disorder, unspecified Status: Acute Assessment & Plan Patient at this time, cooperative with staff but noted to be somewhat inappropriate with instigating comments at times which may be likely secondary to antisocial personality traits. Patient has not had any behavioral dyscontrol or episodes of agitation requiring DTRs. Patient has been compliant with treatment. We'll increase olanzapine to 10 mg a.m. 50 mg at bedtime for mood stabilization. [place] level pending lab work pending. Patient had refused trazodone for when necessary insomnia, we'll add Benadryl 50 mg when necessary insomnia. Collateral pending from parents after visit to assess with the patient is close to baseline as well to coordinate discharge back to the residence. Discharge planning in progress Justification for Cont. Inpt. At risk for further decompensation at lower level of care Discharge Planning Patient to return to parent's residence upon psychiatric stabilization Problem Qualifiers (1) Bipolar disorder: Qualified Codes: F31.12 - Bipolar disorder, current episode manic without psychotic features, moderate Hua Raygoza MD Jul 15, 2017 11:13
[2017-07-15 18:28] VITALS: BP 135/79; PULSE 107; RESP 19; TEMP 100.4; O2SAT 99
[2017-07-15] MEDS ORDERED: diphenhydrAMINE HCL 50 MG CAP PO PRN (21:00)
[2017-07-16 07:15] VITALS: BP 144/81; PULSE 107; RESP 18; TEMP 99.2; O2SAT 100
[2017-07-16] MEDS: REMOVE OLD PATCH T-DERMAL SCH (08:27)
[2017-07-16] MEDS: NICOTINE 21 MG/24 HR PATCH T-DERMAL SCH (08:27)
[2017-07-16] MEDS: LITHIUM CARBONATE 300 MG CAP PO SCH (08:28)
[2017-07-16] MEDS: clonazePAM 0.5 MG TAB PO SCH ×2 (08:28→20:44)
[2017-07-16] MEDS ORDERED: OLANZapine 10 MG TAB PO SCH (09:00)
--- NOTE | 2017-07-16 11:32 | HHI.PYPN ---
Subjective Remarks The patient seen for follow, chart reviewed. Discussion she staff reported patient did not sleep well last night slept only 4 hours and noted to be irritable at times with staff, attention seeking at night and refused labs yesterday. Patient was found walking on the unit, cooperative and also noted to be irritable with underwriter mortgage loan today. Patient states that he is feeling okay and reports having slept fine and when discussed about importance of sleep hygiene and importance to maintain adequate sleep patient states that 4 hours above. When asked about recent irritability states that he is tired of being in the hospital and the benches that when people ask too many questions becomes irritable. He was expected to patient that it is important to attain lithium level as well as blood work due to concerns of abnormal lab results during her last blood draw. Patient agreed to have blood work done today. Collateral from mother to nursing yesterday stated that after the visit with him they feel patient is not ready for discharge as patient is usually a very nice, cordial person but noted to be very irritable and that she had concerns of patient is not sleeping. Physically to patient that medications specifically lithium and Zyprexa will be provided a different presentation form of liquid and dissolvable tablets. Review of Systems Except as stated in HPI: all other systems reviewed are Neg Mental Status Examination Appearance: Appropriate Consciousness: Alert Orientation: Person, Place, Date/Time Motor Activity: Normal gait Speech: Rapid Language: Adequate Fund of Knowledge: Inadequate Attention and Concentration: Easily Distracted Memory: Unremarkable Mood: Other (calm) Affect: Appropriate Thought Process & Associations: Goal directed, Linear Thought Content: Delusional Hallucination Type: None Delusion Type: Bizarre, Other (grandiose) Suicidal Ideation: No Suicidal Plan: No Suicidal Intention: No Homicidal Ideation: No Homicidal Plan: No Homicidal Intention: No Insight: Fair Judgment: Impulsive Results Vitals/IOs Vital Signs Date Time Temp Pulse Resp B/P (MAP) Pulse Ox O2 Delivery O2 Flow Rate FiO2 07/16/17 07:15 99.2 107 18 144/81 (102) 100 Assessment & Plan Problem List: (1) Bipolar disorder ICD Codes: F31.9 - Bipolar disorder, unspecified Status: Acute Assessment & Plan Patient at this time continues to noted irritability, continues to have poor sleep and refusing sleep aid at night. Patient states he is compliant with treatment and due to previous report by nursing staff of patient motioning spitting out his medications days prior and of limited response to current treatment despite increase in dose gives rise to suspicion of patient's likely cheeking medication spitting them out. For this reason lithium will be switched to liquid form and Zyprexa to dissolvable tablet form. We'll obtain labs today to assess lithium level as well as CK level and chemistries. Continue recommendations as per primary medical team. Continue to encourage patient by mouth hydration. Collateral pressure pending from family. Discharge planning in progress Justification for Cont. Inpt. At risk for further decompensation at lower level of care Discharge Planning Patient to return back to her parent's residence when psychiatrically and medically stable Problem Qualifiers (1) Bipolar disorder: Qualified Codes: F31.12 - Bipolar disorder, current episode manic without psychotic features, moderate Hua Raygoza MD Jul 16, 2017 11:32
[2017-07-16 13:37] LABS: BICARBONATE 30.8 MEQ/L (21.0-32.0); CALCIUM 8.9 MG/DL (8.5-10.1); CREATININE 1.02 MG/DL (0.60-1.30)
[2017-07-16 16:59] VITALS: BP 140/93; PULSE 106; RESP 18; TEMP 98.9; O2SAT 100
[2017-07-16] MEDS: LORazepam 1 MG TAB PO PRN (17:15)
[2017-07-16] MEDS: LITHIUM ORAL SOLUTION 300 MG/5 ML CUP PO SCH (20:44)
[2017-07-16] MEDS ORDERED: OLANZapine ODT 15 MG TAB PO SCH (21:00)
[2017-07-17 05:47] VITALS: BP 146/88; PULSE 91; RESP 18; TEMP 98.4; O2SAT 99
[2017-07-17] MEDS: NICOTINE 21 MG/24 HR PATCH T-DERMAL SCH (08:10)
[2017-07-17] MEDS: LITHIUM ORAL SOLUTION 300 MG/5 ML CUP PO SCH (08:10)
[2017-07-17] MEDS: clonazePAM 0.5 MG TAB PO SCH (08:11)
[2017-07-17] MEDS ORDERED: OLANZapine ODT 10 MG TAB PO SCH (09:00)
[2017-07-17] MEDS: REMOVE OLD PATCH T-DERMAL SCH (10:25)
[2017-07-17] MEDS ORDERED: LITH300C2 PO (12:11)
[2017-07-17] MEDS ORDERED: CLON.5 PO (12:11)
[2017-07-17] MEDS ORDERED: OLAN10TA PO (12:11)
[2017-07-17] MEDS ORDERED: OLAN15TA PO (12:11)
--- NOTE | 2017-07-17 16:58 | HHI.DS ---
Psychiatry Discharge Summary Inpatient Psychiatric care?: Yes Advance Directive: No Reason Not Provided: "DOES NOT WANT TO THINK ABOUT THIS" Mental Health AdvanceDirective: No Health Care Proxy: No Admission Admission Date Jul 09, 2017 at 20:37 Admission Diagnosis: (1) Bipolar disorder ICD Code: F31.9 - Bipolar disorder, unspecified Brief History Patient's the 22-year-old man, single, domiciled with girlfriend, unemployed, with a past psychiatric history of bipolar disorder 2 previous psychiatric hospitalizations, no previous suicide attempt or self-injurious behavior, with a substance use history significant for marijuana use, who was brought in the [employer] act as a being found running naked in golf course, disorganized in the context of history of noncompliance with concerns of patient 's ability care of self due to current symptomatology which patient was transferred to the inpatient psychiatry unit for further evaluation and management. Patient was found in the day room was able to cooperate with interview. Patient states that he had recently been having "trust issues" with others state is the reason why he had left patient states that he feels his girlfriend was starting to "turning on me" and having been influenced by his mother. Patient noted to be disorganized during interview with flight of ideas and loosening associations along with noted pressured speech. Patient states that recently he had been playing video games along with using marijuana daily in mentioning having had increase interested study computers and having wanting to be a computer peripheral equipment operator along with reading the online Bible. Patient mentions other activities are decreased goal-directed activities with decreased sleep, having discontinued risperidone although reports continuing lithium. Patient states that he has "brain prior over weaker mines" as well as noticing that his mood has been "all over the place" but was not is a specified period patient at this time reports feeling well denies any perceptual disturbances at this time continues some grandiose and bizarre delusions. Family history: Patient reports being adopted. The patient is a 22-year-old man, single, domiciled with his girlfriend, unemployed, with psychiatric history of bipolar disorder, previous psychiatric hospitalizations, no previous suicidal attempts, cannabis use disorder, he is on lithium unknown doses, no medical history, who was brought to the hospital on the [employer] act because he was found running naked in a golf course. The patient was seen today for an evaluation and second opinion. He was found talking with other peers, calm, cooperative. However, patient is very disorganized, tangential, with ideas of reference. He says that people has been trying to control his mind and his behavior, he says that he is there for his family most be behind all this "by controlling my mind". He denies suicidal and homicidal ideation, he denies visual and auditory hallucinations. Tobacco Use In Past 30 Days: No Tobacco Past 30 Days Alcohol Use: Never Hospital Course Patient's the 22-year-old man, single, domiciled with girlfriend, unemployed, with a past psychiatric history of bipolar disorder 2 previous psychiatric hospitalizations, no previous suicide attempt or self-injurious behavior, with a substance use history significant for marijuana use, who was brought in the [employer] act as a being found running naked in golf course, disorganized in the context of history of noncompliance with concerns of patient 's ability care of self due to current symptomatology which patient was transferred to the inpatient psychiatry unit for further evaluation and management. Patient started on olanzapine and titrated up to 10mg AM/15mg HS, continued on [place] 300mg PO BID for mood stabilization and psychosis due to active psychotic symptoms as well as disorganization, these medications started which patient tolerated well to. Patient had markedly elevated CK which trended down. Patient was noted to start to have progressive improvement of mood although noted to have irritability with staff, at times inappropriate behavior. Patient was noted to have decreasing lithium levels which upon last lab results showed. Patient had been somewhat oppositional with staff and workup, refusing sleep aid in the evening which patient continued to have poor sleep, average 4 hrs per night. Although patient had been reporting compliance with treatment, formulation of medications were changed to liquid and dissolvable tablets to ensure compliance. Patient was continued to be noted to be irritable at times and with paranoid delusions. Patient was taken to mental health court which the party host/hostess had ordered the patient to be discharged back to her despite recommendations for patient to remain for stabilization as it was deemed that the patient did not meet criteria for involuntary hospitalization. Patient agreed to continue medication regimen and outpatient follow up for continuity of care. Patients family has requested that patient be discharged to their care during court proceedings and had planned on sending patient to a dual diagnosis treating facility in [place]. I have counseled the patient regarding warning signs for need to return to the psychiatric emergency room as part of a general safety plan. Patient advised to call 911 or go nearest ED in case of emergency. Patient agrees with plan. Results Blood Pressure 146 / 88 Vital Signs Date Time Temp Pulse Resp B/P (MAP) Pulse Ox O2 Delivery O2 Flow Rate FiO2 07/17/17 05:47 98.4 91 18 146/88 (107) 99 Laboratory Tests Test 07/16/17 12:05 Anion Gap 4 MEQ/L (5-15) Total Creatine Kinase 603 U/L (39-308) [place] Level 0.3 MEQ/L (0.5-1.5) Laboratory Results Test 07/10/17 04:54 07/16/17 12:05 Cholesterol Level 80 MG/DL (120-200) HDL Cholesterol 40.5 MG/DL (40.0-60.0) Hemoglobin A1c 5.1 % (4.3-6.0) LDL Cholesterol 29 MG/DL (0-99) Triglycerides Level 55 MG/DL (42-150) [place] Level 0.3 MEQ/L (0.5-1.5) Summary of Procedures None Pending results at discharge: No Medications # of Antipsychotic meds at D/C: 1 Approp Antipsych med options 1 - Minimum of three failed multiple trials of monotherapy. 2 - Documented plan to taper to monotherapy due to previous use of multiple meds OR cross-taper in progress at D/C. 3 - Documentation of augmentation of Clozapine. 4 - Justification other than those listed in allowable values 1-3, document here : Discharge Discharge Date: Jul 17, 2017 Discharge Diagnosis: (1) Bipolar disorder ICD Code: F31.9 - Bipolar disorder, unspecified Status: Acute Pt Condition on Discharge: Stable Discharge Disposition: Discharge Home Discharge Instructions Diet Instructions: As Tolerated, No Restrictions Activities you can perform: Regular-No Restrictions Scheduled Appointment: Clark YANG Appointment Date: Jul 18, 2017 Appointment Time: 9am Discharge Time > 30 minutes Mental Status Examination Appearance: Appropriate Consciousness: Alert Orientation: Person, Place, Date/Time Motor Activity: Normal gait Speech: Unremarkable Language: Adequate Fund of Knowledge: Inadequate Attention and Concentration: Inadequate Memory: Unremarkable Mood: Oppositional, Irritable Affect: Irritable Thought Process & Associations: Goal directed, Linear Thought Content: Preoccupations, Delusional Hallucination Type: None Delusion Type: Bizarre, Other (grandiose) Suicidal Ideation: No Suicidal Plan: No Suicidal Intention: No Homicidal Ideation: No Homicidal Plan: No Homicidal Intention: No Insight: Poor Judgment: Poor Discharge/Advance Care Plan Health Problems: (1) Bipolar disorder Goals to promote your health * To prevent worsening of your condition and complications * To maintain your health at the optimal level Directions to meet your goals Take your medications as prescribed Follow your dietary instruction Follow activity as directed Keep your appointments as scheduled Take your immunizations and boosters as scheduled If your symptoms worsen call your PCP, if no PCP go to Urgent Care Center or Emergency Room For 20/01 questions related to your inpatient stay or results of tests pending at discharge, please contact Dr. Hua Raygoza at Smoking is Dangerous to Your Health. Avoid second hand smoking Problem Qualifiers (1) Bipolar disorder: Qualified Codes: F31.12 - Bipolar disorder, current episode manic without psychotic features, moderate Hua Rayogza MD Jul 17, 2017 16:58
== END 2017-07-17 13:10 | disposition home or self-care (01) | DRG 885 ==
LOC: NEDAMB 14:28 → NEDA 20:37 → H270 21:48
PROVIDERS: ADMIT Student in an Organized Health Care Education/Training Program; ATTEND Student in an Organized Health Care Education/Training Program
DX: F31.12 Bipolar disorder, current episode manic without psychotic features, moderate (principal); N17.9 Acute kidney failure, unspecified; M62.82 Rhabdomyolysis; F12.90 Cannabis use, unspecified, uncomplicated; D72.829 Elevated white blood cell count, unspecified
CPT/HCPCS: 80048; 80053; 80061; 80178; 80307; 82550; 82552; 83036; 85025; 85027; 99285; J2060; Q0163